=== PATIENT | female | born 1990 | race Caucasian/White ===

== ENCOUNTER 2016-04-24 21:08 | Emergency (ER) | payer OTHER ==
--- NOTE | 2016-04-24 23:48 | ED NURSING NOTES ---
Clinical Report - Nurses [facility] [address] [place] [address] 04/24/2016 21:11 Patient: SUMMER ANDRES TRIAGE Triage time 21:15. Acuity: LEVEL 3. Chief Complaint: LEFT LOWER EXTREMITY PAIN and SWELLING. 21:24 04/24/16. Alert. No acute distress. JAHAIRA COMA SCORE: [place] Coma Scale: 15- eyes open spontaneously (4); best verbal response- oriented x 4 (5); best motor response- obeys commands (6). --21:24 Aditya Mckinney R.N. 21:19 04/24/16. BP: 132/80. HR: 98. RR: 16. O2 saturation: 98% on room air. Temp: 98.1 F (oral). Pain level now 2/10. --21:24 Aditya Mckinney R.N. Weight: 86.1 kg stated. Height/Length: 69 inches Per Patient. BMI: 28.1. --21:20 Aditya Mckinney R.N. Medications Plus Iron Oral. --21:24 Aditya Mckinney R.N. Medication/allergy information source: the patient. --21:24 Aditya Mckinney R.N. Allergies No Known Drug Allergy. --21:24 Aditya Mckinney R.N. History Arrived by private vehicle. Historian: patient. Accompanied by spouse. Primary physician ([facility]). ( LLE swelling x 2 weeks, which worsened yesterday and today. LLE pain which improves with elevation.). No injury occurred. This occurred (2 weeks ago). She has had swelling. 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 PAST MEDICAL HX: Last normal menstrual period- 10/06/15. Currently . SOCIAL HX: Never smoker. No alcohol use or drug use. FALL RISK ASSESSMENT: Fall risk assessment completed. No fall risk identified. NUTRITIONAL RISK ASSESSMENT: The nutritional risk assessment revealed no deficiencies. FUNCTIONAL ASSESSMENT: Functional assessment: no impairments noted. LEARNING NEEDS ASSESSMENT: The learning needs assessment revealed no barriers. SKIN INTEGRITY ASSESSMENT: Skin integrity risk assessment completed. No skin integrity risk identified. --21:24 Aditya Mckinney R.N. ADDITIONAL SURGERIES: Appendectomy. --21:24 Aditya Mckinney R.N. Interventions ID band on patient. To treatment room. --21:24 Aditya Mckinney R.N. PHYSICAL ASSESSMENT 21:25 04/24/16. Ambulatory to room. GENERAL / NEURO / PSYCH: Oriented X 4. Alert. Appears in no acute distress. EXTREMITIES: Extremity pulses are within normal limits. Extremities exhibit normal ROM. Neuro-vascular status intact to the extremity. Normal gait. Left thigh: swelling. Left leg: swelling. SKIN: Skin intact. Skin is warm and dry. --21:25 Aditya Mckinney R.N. NURSING PROGRESS NOTES 21:04/24/16. The plan of care for this patient has been created. Extremity elevated. Call light placed in reach. Bed placed in lowest position. Brakes of bed on. Patient ready for evaluation- chart flagged. --21:25 Aditya Mckinney R.N. Care transferred and report received (shane rn). --22:07 Lotus Restrepo R.N. 22:49 04/24/16. The patient reports no complaints and she is calm and resting quietly. Overall patient status is the same- she states feels the same. ( pt awaiting us). GENERAL / NEURO / PSYCH: Alert. Oriented X 4. RESPIRATORY: No respiratory distress. CVS: Capillary refill less than 2 seconds. EXTREMITIES: Neuro-vascular status intact to the extremities. SKIN: Skin is warm and dry. --22:49 Lotus Restrepo R.N. 22:48 04/24/16. BP: 118/76. HR: 90. RR: 18. O2 saturation: 98% on room air. --22:49 Lotus Restrepo R.N. 23:37 04/24/16. ( us bedside with pt at this time). GENERAL / NEURO / PSYCH: Alert. Oriented X 4. RESPIRATORY: No respiratory distress. CVS: Capillary refill less than 2 seconds. EXTREMITIES: Neuro-vascular status intact to the extremities. SKIN: Skin is warm and dry. --23:37 Lotus Restrepo R.N. 00:01 04/25/16. ( [facility] 144). --00:02 Lotus Restrepo R.N. DISPOSITION / DISCHARGE Departure time: 00:Apr 25 2016. Condition at departure: improved. The goals identified in the patient's plan of care were met. No learning barriers present. Patient verbalized understanding. Written instructions provided in Icelandic. The patient was discharged by the physician. She was discharged home and accompanied by spouse and family. She left the Emergency Department ambulatory and via private vehicle. Spouse driving. --00:02 Lotus Restrepo R.N. 22:48 04/24/16. BP: 118/76. HR: 90. RR: 18. O2 saturation: 98% on room air. 21:19 04/24/16. BP: 132/80. HR: 98. RR: 16. O2 saturation: 98% on room air. Temp: 98.1 F (oral). Pain level now 2/10. --00:02 Lotus Restrepo R.N. Locked/Released at 04/25/2016 0:03 by Lotus Restrepo R.N.
--- NOTE | 2016-04-24 23:48 | ED ORDER SUMMARY ---
..... Patient: SUMMER ANDRES OrderSheet [facility] VisitID: [id number] [address] [place] [address] 25y, F Registration Date/Time: 04/24/2016 ORDER SHEET Weight: 86.1 kg (stated) Allergies: No Known Drug Allergy GENERAL ORDERS: US Venous Left Urgent (22:49 04/24/2016 Cindy SKINNER) (Ack 22:52 OSnell) (23:50 RFay) Heart Tones (23:47 04/24/2016 Cindy SKINNER) (0:01 Milena R.N.) MEDICATION ORDERS: IV FLUIDS: ORDER SHEET NOTES: [Electronically signed by Lotus Restrepo R.N. (00:03 04/25/2016)] [Electronically signed by Elizabeth Anglin MD (06:56 04/29/2016)] [Electronically locked/signed by Lotus Restrepo R.N. (00:03 04/25/2016)]
--- NOTE | 2016-04-24 23:48 | ED CLINICAL REPORT ---
Clinical Report - Physicians/Mid Levels [facility] [address] [place] [address] 04/24/2016 21:11 Patient: SUMMER ANDRES Time Seen: 21:18. Arrived- By private vehicle. Historian- patient. HISTORY OF PRESENT ILLNESS Chief Complaint: LOWER EXTREMITY PAIN and SWELLING. Not relieved by anything- worsened by standing and walking. This started yesterday and is still present. Severity is described as being moderate. The quality is noted to be dull, aching and "pain". Symptoms located in the area of the left thigh and left leg. The patient has had swelling, but not had redness. No difficulty walking. No bladder dysfunction, bowel dysfunction, sensory loss or motor loss. Patient denies an injury. Similar symptoms previously: None. Recent medical care: The patient was seen recently by a health care provider. ( Pt is 29 wks .). REVIEW OF SYSTEMS No cough, chest pain, difficulty breathing, fever or skin rash. No enlarged lymph nodes, neck pain, back pain, headache or blurred vision. No sore throat, abdominal pain, vomiting, diarrhea or black stools. No difficulty with urination or bloody stools. All systems otherwise negative, except as recorded above. PAST HISTORY Problems: . Additional Surgeries: Appendectomy. Medications: Plus Iron Oral. Allergies: No Known Drug Allergy. SOCIAL HISTORY Never smoker. No alcohol use or drug use. ADDITIONAL NOTES The nursing notes have been reviewed. PHYSICAL EXAM Vital Signs: 04/24/2016 21:19 BP: 132/80. HR: 98. RR: 16. O2 saturation: 98%. Temp: 98.1 F. Have been reviewed. Appearance: Alert. Oriented X3. No acute distress. Eyes: Pupils equal, round and reactive to light. Eyes normal inspection. ENT: Nose normal. Neck: Normal inspection. Neck supple. CVS: Normal heart rate and rhythm. Heart sounds normal. Respiratory: No respiratory distress. Breath sounds normal. Abdomen: Soft. Gravid uterus. Back: Normal inspection. No tenderness. ROM normal. Skin: Skin intact. Skin warm and dry. Normal skin color. Normal skin turgor. Extremities: Lower extremities exhibit normal ROM. Moderate pitting edema of the left lower extremity involving the foot, ankle and lower leg. Extremities otherwise negative. Gait: Normal gait. Neuro: Oriented X 3. No motor deficit. No sensory deficit. LABS, X-RAYS, AND EKG Lower Extremity Sonography: Negative exam. No compression abnormality noted. Visualized common femoral artery and common femoral vein, superficial femoral artery and superficial femoral vein, deep femoral artery and deep femoral vein and popliteal artery and popliteal vein. Vessels patent. Study type: utilized duplex sonography. The exam was performed by me. The study was independently viewed by me, interpreted by the radiologist and contemporaneously by me and discussed with the radiologist. Prior studies were not available for comparison. Pulse Oximetry: 04/24/2016 21:19 O2 saturation: 98%. Interpretation: normal. PROGRESS AND PROCEDURES Course of Care: PT was worked up for DVT, and found to be negative. FHTs were found to be 144. No emergent condition identified. Patient counseled in person regarding the patient's stable condition, test results, diagnosis and need for follow-up. Concerns were addressed. Old medical records reviewed. Disposition: Discharged. Condition: stable. CLINICAL IMPRESSION Third trimester . Left pedal edema. INSTRUCTIONS (Your ultrasound shows no DVT!). Warnings: GENERAL WARNINGS: Return or contact your physician immediately if your condition worsens or changes unexpectedly, if not improving as expected, or if other problems arise. Your Current Medications: CONTINUE TAKING THE FOLLOWING MEDICATIONS: Plus Iron Oral. Follow-up: Follow up with an bill cutter as scheduled. Understanding of the discharge instructions verbalized by patient. (Electronically signed by Elizabeth Anglin MD 04/29/2016 6:56)
--- NOTE | 2016-04-24 23:48 | ED NURSING NOTES ---
Clinical Report - Nurses [facility] [address] [place] [address] 04/24/2016 21:11 Patient: SUMMER ANDRES TRIAGE Triage time 21:15. Acuity: LEVEL 3. Chief Complaint: LEFT LOWER EXTREMITY PAIN and SWELLING. 21:24 04/24/16. Alert. No acute distress. JAHAIRA COMA SCORE: [place] Coma Scale: 15- eyes open spontaneously (4); best verbal response- oriented x 4 (5); best motor response- obeys commands (6). --21:24 Aditya Mckinney R.N. 21:19 04/24/16. BP: 132/80. HR: 98. RR: 16. O2 saturation: 98% on room air. Temp: 98.1 F (oral). Pain level now 2/10. --21:24 Aditya Mckinney R.N. Weight: 86.1 kg stated. Height/Length: 69 inches Per Patient. BMI: 28.1. --21:20 Aditya Mckinney R.N. Medications Plus Iron Oral. --21:24 Aditya Mckinney R.N. Medication/allergy information source: the patient. --21:24 Aditya Mckinney R.N. Allergies No Known Drug Allergy. --21:24 Aditya Mckinney R.N. History Arrived by private vehicle. Historian: patient. Accompanied by spouse. Primary physician ([facility]). ( LLE swelling x 2 weeks, which worsened yesterday and today. LLE pain which improves with elevation.). No injury occurred. This occurred (2 weeks ago). She has had swelling. 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 PAST MEDICAL HX: Last normal menstrual period- 10/06/15. Currently . SOCIAL HX: Never smoker. No alcohol use or drug use. FALL RISK ASSESSMENT: Fall risk assessment completed. No fall risk identified. NUTRITIONAL RISK ASSESSMENT: The nutritional risk assessment revealed no deficiencies. FUNCTIONAL ASSESSMENT: Functional assessment: no impairments noted. LEARNING NEEDS ASSESSMENT: The learning needs assessment revealed no barriers. SKIN INTEGRITY ASSESSMENT: Skin integrity risk assessment completed. No skin integrity risk identified. --21:24 Aditya Mckinney R.N. ADDITIONAL SURGERIES: Appendectomy. --21:24 Aditya Mckinney R.N. Interventions ID band on patient. To treatment room. --21:24 Aditya Mckinney R.N. PHYSICAL ASSESSMENT 21:25 04/24/16. Ambulatory to room. GENERAL / NEURO / PSYCH: Oriented X 4. Alert. Appears in no acute distress. EXTREMITIES: Extremity pulses are within normal limits. Extremities exhibit normal ROM. Neuro-vascular status intact to the extremity. Normal gait. Left thigh: swelling. Left leg: swelling. SKIN: Skin intact. Skin is warm and dry. --21:25 Aditya Mckinney R.N. NURSING PROGRESS NOTES 21:04/24/16. The plan of care for this patient has been created. Extremity elevated. Call light placed in reach. Bed placed in lowest position. Brakes of bed on. Patient ready for evaluation- chart flagged. --21:25 Aditya Mckinney R.N. Care transferred and report received (shane rn). --22:07 Lotus Restrepo R.N. 22:49 04/24/16. The patient reports no complaints and she is calm and resting quietly. Overall patient status is the same- she states feels the same. ( pt awaiting us). GENERAL / NEURO / PSYCH: Alert. Oriented X 4. RESPIRATORY: No respiratory distress. CVS: Capillary refill less than 2 seconds. EXTREMITIES: Neuro-vascular status intact to the extremities. SKIN: Skin is warm and dry. --22:49 Lotus Restrepo R.N. 22:48 04/24/16. BP: 118/76. HR: 90. RR: 18. O2 saturation: 98% on room air. --22:49 Lotus Restrepo R.N. 23:37 04/24/16. ( us bedside with pt at this time). GENERAL / NEURO / PSYCH: Alert. Oriented X 4. RESPIRATORY: No respiratory distress. CVS: Capillary refill less than 2 seconds. EXTREMITIES: Neuro-vascular status intact to the extremities. SKIN: Skin is warm and dry. --23:37 Lotus Restrepo R.N. 00:01 04/25/16. ( [facility] 144). --00:02 Lotus Restrepo R.N. DISPOSITION / DISCHARGE Departure time: 00:Apr 25 2016. Condition at departure: improved. The goals identified in the patient's plan of care were met. No learning barriers present. Patient verbalized understanding. Written instructions provided in Macedonian. The patient was discharged by the physician. She was discharged home and accompanied by spouse and family. She left the Emergency Department ambulatory and via private vehicle. Spouse driving. --00:02 Lotus Restrepo R.N. 22:48 04/24/16. BP: 118/76. HR: 90. RR: 18. O2 saturation: 98% on room air. 21:19 04/24/16. BP: 132/80. HR: 98. RR: 16. O2 saturation: 98% on room air. Temp: 98.1 F (oral). Pain level now 2/10. --00:02 Lotus Restrepo R.N. Locked/Released at 04/25/2016 0:03 by Lotus Restrepo R.N.
--- NOTE | 2016-04-24 23:48 | ED ORDER SUMMARY ---
..... Patient: SUMMER ANDRES OrderSheet [facility] VisitID: [id number] [address] [place] [address] 25y, F Registration Date/Time: 04/24/2016 ORDER SHEET Weight: 86.1 kg (stated) Allergies: No Known Drug Allergy GENERAL ORDERS: US Venous Left Urgent (22:49 04/24/2016 Cindy SKINNER) (Ack 22:52 OSnell) (23:50 RFay) Heart Tones (23:47 04/24/2016 Cindy SKINNER) (0:01 Milena R.N.) MEDICATION ORDERS: IV FLUIDS: ORDER SHEET NOTES: [Electronically signed by Lotus Restrepo R.N. (00:03 04/25/2016)] [Electronically signed by Elizabeth Anglin MD (06:56 04/29/2016)] [Electronically locked/signed by Lotus Restrepo R.N. (00:03 04/25/2016)]
--- NOTE | 2016-04-24 23:48 | ED CLINICAL REPORT ---
Clinical Report - Physicians/Mid Levels [facility] [address] [place] [address] 04/24/2016 21:11 Patient: SUMMER ANDRES Time Seen: 21:18. Arrived- By private vehicle. Historian- patient. HISTORY OF PRESENT ILLNESS Chief Complaint: LOWER EXTREMITY PAIN and SWELLING. Not relieved by anything- worsened by standing and walking. This started yesterday and is still present. Severity is described as being moderate. The quality is noted to be dull, aching and "pain". Symptoms located in the area of the left thigh and left leg. The patient has had swelling, but not had redness. No difficulty walking. No bladder dysfunction, bowel dysfunction, sensory loss or motor loss. Patient denies an injury. Similar symptoms previously: None. Recent medical care: The patient was seen recently by a health care provider. ( Pt is 29 wks .). REVIEW OF SYSTEMS No cough, chest pain, difficulty breathing, fever or skin rash. No enlarged lymph nodes, neck pain, back pain, headache or blurred vision. No sore throat, abdominal pain, vomiting, diarrhea or black stools. No difficulty with urination or bloody stools. All systems otherwise negative, except as recorded above. PAST HISTORY Problems: . Additional Surgeries: Appendectomy. Medications: Plus Iron Oral. Allergies: No Known Drug Allergy. SOCIAL HISTORY Never smoker. No alcohol use or drug use. ADDITIONAL NOTES The nursing notes have been reviewed. PHYSICAL EXAM Vital Signs: 04/24/2016 21:19 BP: 132/80. HR: 98. RR: 16. O2 saturation: 98%. Temp: 98.1 F. Have been reviewed. Appearance: Alert. Oriented X3. No acute distress. Eyes: Pupils equal, round and reactive to light. Eyes normal inspection. ENT: Nose normal. Neck: Normal inspection. Neck supple. CVS: Normal heart rate and rhythm. Heart sounds normal. Respiratory: No respiratory distress. Breath sounds normal. Abdomen: Soft. Gravid uterus. Back: Normal inspection. No tenderness. ROM normal. Skin: Skin intact. Skin warm and dry. Normal skin color. Normal skin turgor. Extremities: Lower extremities exhibit normal ROM. Moderate pitting edema of the left lower extremity involving the foot, ankle and lower leg. Extremities otherwise negative. Gait: Normal gait. Neuro: Oriented X 3. No motor deficit. No sensory deficit. LABS, X-RAYS, AND EKG Lower Extremity Sonography: Negative exam. No compression abnormality noted. Visualized common femoral artery and common femoral vein, superficial femoral artery and superficial femoral vein, deep femoral artery and deep femoral vein and popliteal artery and popliteal vein. Vessels patent. Study type: utilized duplex sonography. The exam was performed by me. The study was independently viewed by me, interpreted by the radiologist and contemporaneously by me and discussed with the radiologist. Prior studies were not available for comparison. Pulse Oximetry: 04/24/2016 21:19 O2 saturation: 98%. Interpretation: normal. PROGRESS AND PROCEDURES Course of Care: PT was worked up for DVT, and found to be negative. FHTs were found to be 144. No emergent condition identified. Patient counseled in person regarding the patient's stable condition, test results, diagnosis and need for follow-up. Concerns were addressed. Old medical records reviewed. Disposition: Discharged. Condition: stable. CLINICAL IMPRESSION Third trimester . Left pedal edema. INSTRUCTIONS (Your ultrasound shows no DVT!). Warnings: GENERAL WARNINGS: Return or contact your physician immediately if your condition worsens or changes unexpectedly, if not improving as expected, or if other problems arise. Your Current Medications: CONTINUE TAKING THE FOLLOWING MEDICATIONS: Plus Iron Oral. Follow-up: Follow up with an lead pharmacy technician as scheduled. Understanding of the discharge instructions verbalized by patient. (Electronically signed by Elizabeth Anglin MD 04/29/2016 6:56)
--- NOTE | 2016-04-25 00:44 | DIAGNOSTIC IMAGING REPORT ---
PROCEDURE: US VENOUS - LEFT EXT INDICATION: Left lower extremity pain and edema, initial encounter TECHNIQUE: Duplex sonography of the deep venous system in the left lower extremity was performed. Compression and augmentation techniques were used. COMPARISON: None. FINDINGS: Normal compression of the greater saphenous, common femoral, superficial femoral, popliteal, peroneal, and posterior tibial veins. Normal augmentation. Slow vascular flow in the common femoral vein but there is no evidence of superficial or deep venous thrombosis. IMPRESSION: 1. Slow vascular flow in the left common femoral vein but no evidence of a DVT
--- NOTE | 2016-04-29 06:56 | ED DISCHARGE INSTRUCTIONS ---
Patient: SUMMER ANDRES General Instructions [facility] VisitID: [id number] [place] [address] 25y, F Registration Date/Time: 04/24/2016 Third trimester . Left pedal edema. INSTRUCTIONS (Your ultrasound shows no DVT!). Warnings: GENERAL WARNINGS: Return or contact your physician immediately if your condition worsens or changes unexpectedly, if not improving as expected, or if other problems arise. Your Current Medications: CONTINUE TAKING THE FOLLOWING MEDICATIONS: Plus Iron Oral. Follow-up: Follow up with an raise driller as scheduled. Understanding of the discharge instructions verbalized by patient. ADDITIONAL INFORMATION Leg Swelling (Unilateral) Swelling of the arms, feet, ankles, and legs is called edema. It is due to excess fluid collecting in the tissues. Because of gravity, excess fluid in the body settles to the lowest part. That is why the legs and feet are most affected. Some of the causes for swelling in one leg only include: Foot or leg infection Venous insufficiency (congestion of blood in the deep veins of the legs) Varicose veins (dilated veins of the lower leg) Garters or anything that constricts the leg Insect bite or sting on the foot or leg Injury or recent surgery on the foot or leg Blood clot in the deep veins of the leg Medical treatment will depend on the cause of your swelling. Home Care: Do not wear garments that constrict your legs (such as garters). Elevate your legs while lying or sitting. Take any medicines as directed. If infection, injury, or recent surgery is the cause for your swelling, stay off your legs as much as possible until symptoms improve. If your doctor says that venous insufficiency or varicose veins is the cause of leg swelling, do not sit or entry level project coordinator one place for long periods of time. Take breaks and walk around every few hours. Brisk walking is a good exercise and helps circulate the congested bloodin your leg. Talk to your doctor about the use of support stockings to prevent daytime leg swelling. Follow Up with your doctor or as advised by our staff. Get Prompt Medical Attention if any of the following occur: Shortness of breath or chest pain with breathing Coughing up blood Increased swelling, warmth or redness of the leg, ankle or foot Calf pain Fever of 100.4F (38C) or higher, or as directed by your healthcare provider Weakness, dizziness or fainting You have been given the following additional information: Peripheral Edema, Unilateral (Electronically signed by Elizabeth Anglin MD 04/29/2016 6:56)
--- NOTE | 2016-04-29 06:56 | ED DISCHARGE INSTRUCTIONS ---
Patient: SUMMER ANDRES General Instructions [facility] VisitID: [id number] [place] [address] 25y, F Registration Date/Time: 04/24/2016 Third trimester . Left pedal edema. INSTRUCTIONS (Your ultrasound shows no DVT!). Warnings: GENERAL WARNINGS: Return or contact your physician immediately if your condition worsens or changes unexpectedly, if not improving as expected, or if other problems arise. Your Current Medications: CONTINUE TAKING THE FOLLOWING MEDICATIONS: Plus Iron Oral. Follow-up: Follow up with an senior dynamics crm developer as scheduled. Understanding of the discharge instructions verbalized by patient. ADDITIONAL INFORMATION Leg Swelling (Unilateral) Swelling of the arms, feet, ankles, and legs is called edema. It is due to excess fluid collecting in the tissues. Because of gravity, excess fluid in the body settles to the lowest part. That is why the legs and feet are most affected. Some of the causes for swelling in one leg only include: Foot or leg infection Venous insufficiency (congestion of blood in the deep veins of the legs) Varicose veins (dilated veins of the lower leg) Garters or anything that constricts the leg Insect bite or sting on the foot or leg Injury or recent surgery on the foot or leg Blood clot in the deep veins of the leg Medical treatment will depend on the cause of your swelling. Home Care: Do not wear garments that constrict your legs (such as garters). Elevate your legs while lying or sitting. Take any medicines as directed. If infection, injury, or recent surgery is the cause for your swelling, stay off your legs as much as possible until symptoms improve. If your doctor says that venous insufficiency or varicose veins is the cause of leg swelling, do not sit or knitting demonstrator one place for long periods of time. Take breaks and walk around every few hours. Brisk walking is a good exercise and helps circulate the congested bloodin your leg. Talk to your doctor about the use of support stockings to prevent daytime leg swelling. Follow Up with your doctor or as advised by our staff. Get Prompt Medical Attention if any of the following occur: Shortness of breath or chest pain with breathing Coughing up blood Increased swelling, warmth or redness of the leg, ankle or foot Calf pain Fever of 100.4F (38C) or higher, or as directed by your healthcare provider Weakness, dizziness or fainting You have been given the following additional information: Peripheral Edema, Unilateral (Electronically signed by Elizabeth Anglin MD 04/29/2016 6:56)
--- NOTE | 2016-04-29 06:57 | ED MAR SUMMARY ---
..... Medication Administration Record [facility] [address] [place], [place] [id number] Patient: SUMMER ANDRES Visit ID: [id number] 25y, F Weight: 86.1 kg Height/Length: 69 in BMI: 28.1 ALLERGIES: No Known Drug Allergy
--- NOTE | 2016-04-29 06:57 | ED MED RECONCILIATION SUMMARY ---
Patient: ROLLYWILBERTO KANGYSSA Sena Medication Reconciliation Report [facility] VisitID: [id number] [address] [place] [place] [address] 25y, F Registration Date/Time: 04/24/2016 Weight: 86.1 kg Height/Length: 69 in. BMI: 28.1 ALLERGIES: No Known Drug Allergy The patient's Home Medications are listed below: CONTINUE TAKING THE FOLLOWING MEDICATIONS: Plus Iron Oral The source(s) of the original Home Medication information: patient The following Medications were given to the patient in the Emergency Department: None. The following Medications were prescribed to the patient: None.
--- NOTE | 2016-04-29 06:57 | ED MED RECONCILIATION SUMMARY ---
Patient: ROLLYWILBERTO KANGYSSA Sena Medication Reconciliation Report [facility] VisitID: [id number] [address] [place] [place] [address] 25y, F Registration Date/Time: 04/24/2016 Weight: 86.1 kg Height/Length: 69 in. BMI: 28.1 ALLERGIES: No Known Drug Allergy The patient's Home Medications are listed below: CONTINUE TAKING THE FOLLOWING MEDICATIONS: Plus Iron Oral The source(s) of the original Home Medication information: patient The following Medications were given to the patient in the Emergency Department: None. The following Medications were prescribed to the patient: None.
--- NOTE | 2016-04-29 06:57 | ED MAR SUMMARY ---
..... Medication Administration Record [facility] [address] [place], [place] [id number] Patient: SUMMER ANDRES Visit ID: [id number] 25y, F Weight: 86.1 kg Height/Length: 69 in BMI: 28.1 ALLERGIES: No Known Drug Allergy
== END 2016-04-25 00:02 | disposition home or self-care (01) ==
LOC: ED SRH 21:08
DX: O26.893 Other specified pregnancy related conditions, third trimester (principal); R60.0 Localized edema; Z3A.29 29 weeks gestation of pregnancy